=== PATIENT | female | born 1995 | race Caucasian/White ===

== ENCOUNTER 2019-07-11 21:54 | Inpatient (IN) | payer BC, MEDICAID, SELFPAY ==
[2019-07-11 22:07] VITALS: RESP 18; TEMP 36.7
[2019-07-11 22:12] VITALS: BMI 33.9
[2019-07-11] MEDS: miSOPROStol 100 mcg tablet 25 MCG VAGINAL (22:45)
[2019-07-11 22:50] LABS: Basophils % 0.2 %; Eosinophils # 0.1 10^3/uL (0.0-0.8); Eosinophils % 0.4 %; Hematocrit 35.8 % (37.0-47.0); Hemoglobin 11.9 g/dL (11.5-15.3); Lymphocytes # 3.2 10^3/uL (0.8-4.8); Lymphocytes % 27.4 %; Mean Corpuscular HGB Conc 33.2 g/dL (30.0-36.0); Mean Corpuscular Hemoglobin 28.2 pg (28.0-34.0); Mean Corpuscular Volume 84.8 fL (81-99); Mean Platelet Volume 10.6 fL (7.4-10.4); Monocytes # 1.1 10^3/uL (0.2-0.9); Monocytes % 9.1 %; Neutrophils # 7.3 10^3/uL (1.8-7.7); Neutrophils % 62.6 %; Nucleated Red Blood Cells % 0 %; Platelet Count 229 10^3/cmm (130-400); Red Blood Count 4.22 10^6/uL (4.1-5.3); Red Cell Distribution Width 13.1 % (12.1-15.1); White Blood Count 11.7 10^3/uL (4.0-10.0)
[2019-07-12] VITALS (9 sets, daily range): BP systolic 130–155; BP diastolic 80–98; PULSE 75–92; RESP 16–18; TEMP 36.5–36.9; O2SAT 97
[2019-07-12] MEDS: dextrose 5%-lactated ringers 1,000 ML 125 ML IV (03:20)
[2019-07-12] MEDS: fentaNYL 50 mcg/mL INJ 2mL IV ×2 (03:24→04:20)
[2019-07-12] MEDS: lactated ringers 1,000 ML 999 ML IV ×3 (03:57→06:02)
--- NOTE | 2019-07-12 05:08 | P.PN_ITS ---
Pre-Anesthetic Assessment Pre-Anesthetic Assessment: Height/Weight: Height 1.65 m Weight 92.533 kg Temp Resp 98.5 F 18 07/12/19 03:40 07/12/19 03:40 Social: Social History: No alcohol and No tobacco Exam: Pre-Anes Outpt Exam: alert and oriented x 3 Airway: Submandibular: WNL Cervical ROM: WNL MP: 2 History/ROS: No significant history except as noted Pulmonary: Pulmonary: None reported CV/HEM: CV/HEM: None reported : : None reported Hepatic: Hepatic: None reported GI: GI: GERD Metabolic: Metabolic: None reported Musc/skel: Musc/skel: None reported Neuropsych: Neuropsych: None reported Anesthetic Plan: ASA status: II Anesthesia: Regional (specify below) Other: labor epidural placement Risk of > 500 ml blood loss (7ml/kg in children): No Meds/Allergies Current Medications: Current Medications Generic Name Dose Route Start Last Admin Trade Name Freq PRN Reason Stop Dose Admin Fentanyl 25 - 100 mcg 07/12/19 02:39 07/12/19 04:20 Sublimaze IV 75 mcg Q1H PRN Administration SEVERE PAIN Dextrose/Lactated Ringer's 1,000 mls @ 125 m ls/hr 07/11/19 22:15 07/12/19 03:59 Dextrose 5%-Lact ated Ringers IV 0 mls/hr .Q8H DALJIT Infusion Lactated Ringer's 1,000 mls @ 999 m ls/hr 07/11/19 22:03 07/12/19 04:51 Lactated Ringers IV 999 mls/hr .Q1H1M PRN Administration Per L&D Rescitati on Protocol Ropivacaine 200 mg in 100 mls @ 6 mls/hr 07/12/19 03:45 07/12/19 05:05 Naropin Premix EPIDURAL 13 mls/hr .[id number] DALJIT Administration PFSH Anesthesia Female Reproductive History: : 1 Data Anesthesia Labs: Other Labs: Laboratory Results - last 48 hr 07/11/19 22:25 WBC 11.7 H RBC 4.22 Hgb 11.9 Hct 35.8 L MCV 84.8 MCH 28.2 MCHC 33.2 RDW 13.1 Plt Count 229 MPV 10.6 H Neut % (Auto) 62.6 Lymph % (Auto) 27.4 [place] % (Auto) 9.1 Eos % (Auto) 0.4 Baso % (Auto) 0.2 Neut # (Auto) 7.3 Lymph # (Auto) 3.2 [place] # (Auto) 1.1 H Eos # (Auto) 0.1 Baso # (Auto) 0.0 Nucleated RBC % (a uto) 0 Nucleated RBCs # 0.0 Cardiac Studies: No Data to Display Anesthesia Procedures Date of Procedure: 07/12/19 Epidural: Time Out Performed: Yes Consents Signed: Procedure Consent Consent: requested by attending/covering physician, risks and benefits reviewed and patient agrees to proceed Lumbar Level: L3-L4 Epidural position: sitting Epidural procedure: sterile prep of area, 1% lidocaine to numb the area, 18 g needle (L3-L4 interspace), neg for paresthesia, test dose given (3 cc ), 0.2% Ropivacaine bolus ml (8 cc ), placed PCEA (13 mls/hr 5 cc Q 10 min x 3 ), no systemic response, sterile dressing applied and 0.2% Ropiavacaine @ mls/hr (13 ) Additional Comments: 0441: epidural started. QUINN at 8 cm,catheter threaded with ease to 13 cm at skin. VSS no adverse reaction with bolus. 0530: Patient continues to complain of pain with contraction on right side and back, fentanyl 100 mcg given via epidural and 5 cc 1 % lido with epi given. patient tilted to right side, and made aware of option to replace epidural if right sided pain continues. VSS see OBIX.
--- NOTE | 2019-07-12 07:02 | PM.DELIVERY ---
 Delivery Note: Date of delivery: 07/12/19 Pre-delivery diagnoses: This 23-year-old 1 now para 1 female with an EDC of 07/09/2019 began care early in her with this physician. There were no significant complications or problems throughout the . Maternal blood type was O+ with antibody screen negative. Hepatitis B, hepatitis C, RPR and HIV were negative. Rubella was immune and group B strep was negative. She did go postdates and as her was leaving town for work in a few days asked if I would proceed with misoprostol cervical ripening and induction. Benefits and risks were discussed with the patient and spouse prior to her coming in the day prior to delivery for misoprostol cervical ripening. Post-delivery diagnoses: Status post spontaneous vaginal delivery, doing well. Procedure: This patient was admitted to the hospital yesterday evening and monitored closely. Misoprostol 25 mcg was placed intravaginally x1 dose. She began cesar well pretty quickly. She was given epidural anesthesia which provide very little relief for her discomfort. She rapidly went to complete cervical dilatation and this physician was called. Upon arrival, the patient was placed in lithotomy position in stirrups. She pushed very well and was able to deliver by spontaneous vaginal very healthy, viable male infant. Upon delivery of the head the mouth and nose were suctioned. The shoulders were then delivered without problems. There was no nuchal cord and cord had 3 blood vessels. The infant was placed on mother's abdomen where after approximately 1 minute the umbilical cord was clamped and then cut by the 's father. The infant delivered at 06 31. The placenta then delivered spontaneously at 06 48. The infant cried lustily at and had Apgars of 9 and 9 at 1 and 5 minutes respectively. Presently both mother and are doing well. Anesthesia: epidural Delivering Physician: can Estimated blood loss (mL): 154 Findings: There was a small bilateral periurethral laceration which did not require repair. A&P Assessment and plan (1) Spontaneous vaginal delivery: Patient tolerated the procedure well and presently has no heavy bleeding. She will be followed for routine care. We will adjust orders as necessary. Status: Acute Code(s): O80 - Encounter for full-term uncomplicated delivery Coding Level of Care Code Acute Environmental Services Supervisor for Chg Fwd Diagnoses Spontaneous vaginal delivery O80
[2019-07-12] MEDS: oxytocin 30 UNIT/500 ML BAG 600 UNIT IV (07:23)
[2019-07-12] MEDS: lanolin oint 7 gm 1 APPLIC TOPICAL (10:04)
[2019-07-12] MEDS: benzocaine-menthol 78 gm Canister 1 SPRAY TOPICAL (10:04)
[2019-07-12] MEDS: docusate sodium 100 mg Capsule PO ×2 (10:05→18:35)
[2019-07-12] MEDS: prenatal vitamin Capsule 1 CAP PO (10:05)
[2019-07-12 20:26] LABS: Hematocrit 34.2 % (37.0-47.0); Hemoglobin 11.3 g/dL (11.5-15.3); Mean Corpuscular Hemoglobin 28.5 pg (28.0-34.0); Mean Corpuscular Volume 86.1 fL (81-99); Mean Platelet Volume 10.8 fL (7.4-10.4); Platelet Count 214 10^3/cmm (130-400); Red Blood Count 3.97 10^6/uL (4.1-5.3); Red Cell Distribution Width 13.2 % (12.1-15.1); White Blood Count 14.5 10^3/uL (4.0-10.0)
[2019-07-13 00:25] VITALS: BP 137/92; PULSE 88; RESP 16; TEMP 36.6; O2SAT 98
[2019-07-13 05:00] VITALS: BP 123/83; PULSE 76; RESP 16; TEMP 36.7; O2SAT 98
[2019-07-13] MEDS: prenatal vitamin Capsule 1 CAP PO (09:25)
[2019-07-13] MEDS: docusate sodium 100 mg Capsule PO (09:25)
--- NOTE | 2019-07-13 10:07 | PM.OBGYDC ---
Discharge Providers GAS OR PETROLEUM OPERATOR Date of Admission: 07/11/19 21:54 Date of Discharge: 07/15/19 Attending Provider at Admission: Amol Samano MD Attending Provider at Discharge: Amol Samano MD Primary Care Provider: Amol Samano MD Diagnoses at Discharge Discharge Diagnosis (1) Spontaneous vaginal delivery: Status: Acute Problem details: Patient has done well . She has had mild lochia and no significant cramps and clots. The is breast-feeding fair. Reason for Visit Reason for Visit: Reason For Visit: induction Hospital Course Hospital Course: Patient has done well since delivery. She is ambulating well and tolerating a regular diet. The is breast-feeding fair and mom is continue to work with this. She is felt to be stable to be discharged home. Information Peripartum Data: Delivery Method: Vaginal Physical Exam Narrative: EXAM NARRATIVE: After delivery, the patient has done extremely well Const: COMMON NORMALS: no apparent distress and no limitations EXAM LIMITATIONS: no altered mental status GENERAL APPEARANCE: cooperative, comfortable and well kempt; not in distress ORIENTATION/CONSCIOUSNESS: Yes awake, Yes oriented to person, Yes oriented to place and Yes oriented to time Neck/C-Spine: COMMON NORMALS: full ROM Chest: COMMONS NORMALS: inspection of chest normal CHEST: Yes symmetrical chest wall rise Resp: COMMON NORMALS: normal respiratory effort, no use of accessory muscles and clear to auscultation bilaterally AUSCULTATION: clear to auscultation bilaterally Cardio: COMMON NORMALS: regular rhythm RHYTHM: regular rhythm GI: COMMON NORMALS: normal to inspection, nondistended, normoactive bowel sounds and soft to palpation (fundus is firm.) PALPATION: Yes soft (fundus is firm.) Neuro: SENSORIUM/ORIENTATION: Yes oriented to person, Yes oriented to place and Yes oriented to time Psych: COMMON NORMALS: mental status grossly normal and cooperative APPEARANCE: Yes well kempt Discharge Data Data Completed and Pending: Labs from last 24 hours 07/12/19 19:52 WBC 14.5 H RBC 3.97 L Hgb 11.3 L Hct 34.2 L MCV 86.1 MCH 28.5 MCHC 33.0 RDW 13.2 Plt Count 214 MPV 10.8 H Vitals: Last Vital Signs Temp 98.0 F 07/13/19 05:00 Pulse 76 01/04/20 05:00 Resp 16 07/13/19 05:00 BP 123/83 07/13/19 05:00 Pulse Ox 98 07/13/19 05:00 Discharge Plan Discharge Patient Disposition: Home, Self-Care Condition: Stable Prescriptions: New docusate sodium 100 mg Capsule 100 mg PO BID Qty: 0 RF: 0 ibuprofen 800 mg Tablet 800 mg PO TID MDD 3 tablets PRN (Reason: pain) Qty: 90 RF: 1 Lanolin (HPA) 100 % Cream 1 % topical .tid prn MDD 4 PRN (Reason: Dryness) 21 Days Qty: 40 RF: 1 Continued Vitamin Plus Low Iron 27 mg iron- 1 mg tablet 1 tab PO DAILY RF: 0 Discharge Orders: Discharge Order (Routine); Ordered 07/13/19 Ordered By: Amol Samano Discharge Diet: Usual diet Discharge Activity: Limit activity as instructed Patient Instructions: Iron Supplements (By mouth), Vitamins (By mouth), Cord Care (GEN), Your Drury's Appearance (DC), Breast Care for the Breast Feeding Mother (DC), Vaginal Delivery (DC), Jaundice (DC), OB Discharge Report, OB Food/Drug Interaction Guide, OB Home Care, OB Proud Parent Packet Activity Restrictions/Additional Instructions: Follow-up with Dr. Samano in 6 weeks and as needed. Discharge Date/Time: 07/13/19 13:00 Discharge Attestations GAS OR PETROLEUM OPERATOR Time Spent in Discharge Care*: less than 30 min Coding Level of Care Code Acute Dairy Inspector for Chg Fwd Exam Problem Focused Diagnoses Spontaneous vaginal delivery O80
[2019-07-13 10:50] VITALS: BP 125/73; PULSE 65; RESP 18; TEMP 36.8; O2SAT 98
[2019-07-13 12:50] VITALS: BP 131/85; PULSE 108; RESP 18; TEMP 36.9; O2SAT 99
== END 2019-07-13 13:00 | disposition home or self-care (01) | DRG 807 ==
PROVIDERS: Admitting Provider Family Medicine; Family Provider Family Medicine; PCP Family Medicine; Visit Provider Family Medicine
DX: O48.0 Post-term pregnancy (principal); Z37.0 Single live birth; Z3A.40 40 weeks gestation of pregnancy
CPT/HCPCS: 36415; 59409; 85025; 85027; 98960; 99221; J2001; J2795; J3010

== ENCOUNTER 2019-10-01 19:55 | Emergency (ER) | payer BC, MEDICAID, SELFPAY ==
[2019-10-01 20:29] VITALS: BP 137/83; PULSE 112; RESP 18; TEMP 38; O2SAT 99; BMI 28.3
--- NOTE | 2019-10-01 20:54 | ED_ITS ---
Entered by Sera King, acting as scribe for Vivienne Mast MD Oct 01, 2019 19:55 HPI - Fever General: Chief Complaint: Fever Stated Complaint: Fever, chills, sore throat... Time Seen by Provider: 10/01/19 20:51 Source: patient Mode of arrival: ambulatory Limitations: no limitations History of Present Illness: HPI Narrative: 24 yo f came to the er for a fever, sore throat and chills. Onset was last week but was gotten worse over the last couples of days. Pt states that she has been having chest congestion, headache/migraine, cough and fever. Pt said that her was around someone that had coronavirus. MD elicited complaint: fever Onset (ago): week(s) (1 week ago) Context: sick contacts Exacerbating factors: nothing Relieving factors: nothing Associated symptoms: Reports chills, cough, headache(s), nasal congestion and sore throat; Deny abdominal pain, chest pain or vomiting Treatments prior to arrival fever: none Review of Systems General: Reports: other (negeative unless marked) Const: Reports: fever, chills and body aches Eyes: Denies: change in vision ENMT: Reports: throat pain and nasal congestion Card: Denies: chest pain Resp: Reports: productive cough; Denies: shortness of breath GI: Denies: abdominal pain or vomiting Musc: Denies: neck pain or back pain Skin/Breast: Denies: rash Neuro: Reports: headache PFSH ED PFSH: Social History Smoking and tobacco status: never smoked Physical Exam Const: COMMON NORMALS: no apparent distress, oriented x3 and healthy appearing HENMT: COMMON NORMALS: normocephalic and head/scalp atraumatic HEAD & SCALP: normocephalic and atraumatic Eye: COMMON NORMALS: PERRL and EOMs intact bilaterally PUPIL: Yes PERRL Neck/C-Spine: COMMON NORMALS: full ROM and supple Chest: COMMONS NORMALS: inspection of chest normal and palpation of chest normal Resp: COMMON NORMALS: normal respiratory effort, no retractions, no use of accessory muscles and clear to auscultation bilaterally AUSCULTATION: clear to auscultation bilaterally Cardio: COMMON NORMALS: regular rate, regular rhythm and no murmurs RATE: regular rate RHYTHM: regular rhythm GI: COMMON NORMALS: normal to inspection, nondistended, normoactive bowel sounds, soft to palpation, non-tender and no masses PALPATION: Yes soft Extremity: COMMON NORMALS: normal to inspection and full ROM Neuro: COMMON NORMALS: oriented x3, moves all extremities and no focal motor deficits Psych: COMMON NORMALS: mental status grossly normal, thought process normal and cooperative THOUGHT PROCESS: normal thought process Skin: COMMON NORMALS: no rashes or lesions noted and no wounds GENERAL SKIN EXAM: no rashes or lesions noted Course Vital Signs: Vital signs: Vital Signs Temperature 100.4 F H 10/01/19 20:29 Pulse Rate 112 H 10/01/19 20:29 Respiratory Rate 18 10/01/19 20:29 Blood Pressure 137/83 10/01/19 20:29 Pulse Oximetry 99 10/01/19 20:29 MDM - Fever MDM Narrative: Medical decision making narrative: Patient presents here with fever along with cough. Patient is concerned as her had adrian exposure but has no symptoms. We will test her for [place] at 19 and did inform her she needs to self quarantine over the next 2 weeks. Patient's flu is negative and x-ray is negative. She is well-appearing here and has no distress. Patient is stable for discharge and return if worsening. Lab Data: Labs: Lab Results 10/01/19 10/01/19 Range/Units 20:33 21:00 Influenza Type A A g Negative (Negative) POC Influenza B Ag Negative (Negative) Group A Strep Rapi d Negative (Negative) Imaging Data^: CXR: Attestation: I personally reviewed and interpreted this imaging study as follows: My impression: no acute abnormality Discharge Plan Discharge Patient Disposition: Home, Self-Care Clinical Impression: Acute upper respiratory infection Condition: Stable Prescriptions: No Action Tylenol 325 mg Tablet 325 mg PO QID PRN (Reason: Fever) RF: 0 ibuprofen 800 mg Tablet 800 mg PO TID MDD 3 tablets PRN (Reason: pain) Qty: 90 RF: 1 Discharge Orders: Discharge Order (Routine); Ordered 10/01/19 Ordered By: Vivienne Mast Referrals: Amol Samano MD [Primary Care Provider] - 4-7 days Discharge Diet: Advance as tolerated Discharge Activity: Resume usual activity Patient Instructions: Upper Respiratory Infection (ED) Stand Alone Forms: Work/School Release Coding Level of Care Code ED Cutter Grinder Operator for Chg Fwd Exam Comprehensive The documentation recorded by the Fernando leahy Stephanie Lyn, accurately reflects the service I personally performed and the decisions made by me, Vivienne Mast MD Oct 01, 2019 19:55
--- NOTE | 2019-10-01 21:05 | PC.NURSE ---
Introduced self to patient and initiated vital signs. Patient presents A&O x 4. NAD, ABCs intact, MAEW and agreeable to treatment. Respirations are even and unlabored. Pt states that the chief complaint for the ER visit today is due to sore throat and flu-like smyptoms. Pt states that her 's hospital manager has tested positive for COVID-19 and has had contact with that person. Pt denies any vision disturbances or lightheadedness. Bed left in lowest position in semi-fowlers with side rails up.Reassured patient of needs and will continue to monitor.
[2019-10-01 21:17] LABS: Influenza A by IFA Negative (Negative); Influenza B by IFA Negative (Negative)
[2019-10-01] MEDS: acetaminophen 325 mg Tablet 650 MG PO (21:45)
[2019-10-01 21:47] LABS: Rapid Strep A Test Negative (Negative)
--- NOTE | 2019-10-01 21:48 | XR_ITS ---
WS: [id number] Portable AP upright chest, 10/01/2019 Clinical Data: cough Comparison: PA and lateral chest, 09/11/2015. Findings: No nodules, masses or effusions are seen. The heart is normal. The pulmonary vascularity is not increased. No pneumonia or pneumothorax is seen. XR/XR chest 1V portable [id number] Impression: Negative chest.
[2019-10-01 22:25] VITALS: BP 124/88; PULSE 76; RESP 16; TEMP 36.9; O2SAT 97
[2019-10-05 12:44] LABS: Coronavirus Overall Results NOT DETECTED
--- NOTE | 2019-10-05 17:08 | PC.NURSE ---
pt contacted and informed of negative COVID 19 results
== END 2019-10-01 23:12 | disposition home or self-care (01) ==
PROVIDERS: Emergency Medicine; Emergency Provider Emergency Medicine; Family Provider Family Medicine; PCP Family Medicine
DX: J06.9 Acute upper respiratory infection, unspecified (principal)
CPT/HCPCS: 12345; 71045; 87081; 87635; 87804; 87880; 99282; 99283

== ENCOUNTER 2021-03-03 18:20 | Outpatient (CLI) | payer MEDICAID, SELFPAY ==
[2021-03-03] VITALS (12 sets, daily range): BP systolic 117–139; BP diastolic 71–86; PULSE 77–95; RESP 16; TEMP 36.1; BMI 32.8
[2021-03-03 21:20] LABS: Bacteria Urine TRACE /hpf; Bilirubin Urine Neg (Negative); Blood Urine Neg (Negative); Glucose Urine UA Norm (Normal); Ketones Urine Negative (Negative); Leukocyte Esterase Urine Negative (Negative); Nitrate Urine Negative (Negative); Protein Urine Neg (Negative); RBC Urine 0-4 /hpf (0-2); Squamous Epithelial Cell Urine 0-4 /hpf (0-5); Urine Appearance Clear (CLEAR); Urine Color Yellow (Yellow); Urobilinogen Urine Norm (Negative); WBC Urine 0-4 /hpf (0-5); pH Urine 7 (5-7)
== END 2021-03-03 22:30 | disposition home or self-care (01) ==
LOC: OPOB 18:24 → OBGYN 18:25
PROVIDERS: PCP Family Medicine; Visit Provider Family Medicine
DX: O36.8190 Decreased fetal movements, unspecified trimester, not applicable or unspecified (principal); Z3A.00 Weeks of gestation of pregnancy not specified; R10.9 Unspecified abdominal pain
CPT/HCPCS: 59025; 81001; 99211

== ENCOUNTER 2021-04-23 01:49 | Inpatient (IN) | payer MEDICAID, SELFPAY ==
[2021-04-23] VITALS (18 sets, daily range): BP systolic 121–156; BP diastolic 76–102; PULSE 63–93; TEMP 37.1; BMI 34.1
--- NOTE | 2021-04-23 02:10 | PM.OPHPUD ---
Labor & Delivery H&P Update Date of Procedure: April 23, 2021 Date H&P Performed: 04/20/21 H&P update information: I have reviewed H&P completed within last 30 days, I have examined patient prior to procedure and Changes to prior documentation as noted here (Patient began cesar around 11:30 PM.Upon arrival, she was approximately 7 cm dilated.) Admission Diagnosis: Preop diagnosis: in spontaneous labor. Primary indication for procedure: See above. Planned procedure: Plan probable spontaneous vaginal delivery.
[2021-04-23 02:20] LABS: Basophils % 0.3 %; Eosinophils # 0.1 10^3/uL (0.0-0.8); Eosinophils % 0.6 %; Hematocrit 36.1 % (37.0-47.0); Hemoglobin 11.7 g/dL (11.5-15.3); Lymphocytes # 3.8 10^3/uL (0.8-4.8); Lymphocytes % 31.9 %; Mean Corpuscular HGB Conc 32.4 g/dL (30.0-36.0); Mean Corpuscular Volume 83.2 fl (81-99); Mean Platelet Volume 10.9 fL (7.4-10.4); Monocytes # 1.2 10^3/uL (0.2-0.9); Monocytes % 10.1 %; Neutrophils # 6.75 10^3/uL (1.8-7.7); Neutrophils % 56.7 %; Nucleated Red Blood Cells % 0 %; Platelet Count 238 10^3/cmm (130-400); Red Blood Count 4.34 10^6/uL (4.1-5.3); Red Cell Distribution Width 13.4 % (12.1-15.1); White Blood Count 11.9 10^3/uL (4.0-10.0)
[2021-04-23] MEDS: oxytocin 30 UNIT/500 ML BAG 600 UNIT IV (02:37)
--- NOTE | 2021-04-23 02:49 | P.PCNOB_ITS ---
Delivery Note: Date of delivery: April 23, 2021 This 25-year-old 2 now para 2 female at 39 weeks and 3 days had onset of labor at approximately 2330 yesterday evening. She arrived at [facility] labor and delivery in active labor and 7 cm dilated. She quickly dilated to complete cervical dilatation and began pushing at around oh 0229 and delivered by spontaneous vaginal livery a healthy, viable male infant at 02 33. Upon delivery of the head the mouth and nose were suctioned at the perineum followed by delivery of the left shoulder anteriorly in the right shoulder posteriorly. The was then suctioned again with then laying the infant on mother's abdomen. After approximately 1 minute the umbilical cord was clamped and then cut by the 's father. The umbilical cord had 3 blood vessels and there was no nuchal cord. The infant initially sounded little coarse and had some retractions. However he had great tone with Apgars of 8 and 9 at 1 and 5 minutes respectively. The continues to have some retractions and grunting and is requiring CPAP with a 30% oxygen. There was no vaginal or perineal lacerations and no repair needed. No anesthesia was used for the labor and delivery process. The placenta delivered spontaneously at 02 37 and appeared to be intact. Estimated blood loss approximate 114 mL. Pre-Delivery Course: This is patient was followed by this physician throughout her course without problems or concerns. Her blood type was O+ with antibody screen negative. Rubella was immune, group B strep was negative and Covid was negative. She had spontaneous onset of labor at home late last night. Delivery: Spontaneous vaginal delivery. Post-Delivery Status: Patient is doing well with no significant bleeding or cramping. She will be followed for routine postdelivery care. A&P Assessment and plan (1) Spontaneous vaginal delivery: Patient is doing well at this time and will be followed for routine postdelivery care. Mom plans on breast-feeding. Status: Acute Coding Level of Care Code Acute Manager Site for Chg Fwd Diagnoses Spontaneous vaginal delivery O80
[2021-04-23] MEDS: lactated ringers 1,000 ML 999 ML IV (02:50)
[2021-04-23] MEDS: lanolin oint 7 gm 1 APPLIC TOPICAL (03:54)
[2021-04-23] MEDS: benzocaine-menthol 78 gm Canister 1 SPRAY TOPICAL (03:54)
[2021-04-23] MEDS: HYDROcodone-acetaminophen 5-325 mg Tablet PO (03:58)
[2021-04-23] MEDS: prenatal vitamin Capsule 1 CAP PO (09:50)
[2021-04-23] MEDS: ibuprofen 800 mg tablet PO ×3 (09:50→21:27)
[2021-04-23] MEDS: docusate sodium 100 mg Capsule PO ×2 (09:50→18:14)
[2021-04-23 15:50] LABS: Hematocrit 30.2 % (37.0-47.0); Hemoglobin 9.9 g/dL (11.5-15.3); Mean Corpuscular HGB Conc 32.8 g/dL (30.0-36.0); Mean Corpuscular Hemoglobin 27.6 pg (28.0-34.0); Mean Corpuscular Volume 84.1 fl (81-99); Mean Platelet Volume 11.2 fL (7.4-10.4); Platelet Count 189 10^3/cmm (130-400); Red Blood Count 3.59 10^6/uL (4.1-5.3); Red Cell Distribution Width 13.6 % (12.1-15.1); White Blood Count 12.7 10^3/uL (4.0-10.0)
[2021-04-24 04:30] VITALS: BP 119/70; PULSE 75
--- NOTE | 2021-04-24 10:03 | P.DS_ITS ---
Discharge Providers RADIAL DRILL OPERATOR Date of Admission: 04/23/21 01:49 Date of Discharge: 04/24/21 Attending Provider at Admission: Amol Samano MD Attending Provider at Discharge: Amol Samano MD Primary Care Provider: Amol Samano MD Diagnoses at Discharge Discharge Diagnosis (1) Spontaneous vaginal delivery: Status: Acute Reason for Visit Reason for Visit: contractions Hospital Course Hospital Course Patient delivered by spontaneous vaginal delivery very early yesterday morning. She has done well and is breast-feeding well. She has had just mild lochia with no significant clots or other problems. She is ambulating well and tolerating regular diet and is felt to be stable for discharge. Information Peripartum Data: Delivery Method: Vaginal Physical Exam Const: COMMON NORMALS: no acute distress and healthy appearing HENMT: COMMON NORMALS: moist oral mucous membranes Resp: COMMON NORMALS: normal respiratory effort, No retractions, No use of accessory muscles and clear to auscultation bilaterally AUSCULTATION: clear to auscultation bilaterally Cardio: COMMON NORMALS: regular rate, regular rhythm and No murmurs present (Cardio) RATE: regular rate RHYTHM: regular rhythm GI: COMMON NORMALS: Normal to inspection, nondistended, normoactive bowel sounds present, Soft to palpation (Fundus is firm and well below the umbilicus.) and non-tender PALPATION: Yes Soft to palpation (Fundus is firm and well below the umbilicus.) : COMMON NORMALS: Yes no CVA tenderness BLADDER/KIDNEY EXAM: Yes no CVA tenderness Back/Pelvis: COMMON NORMALS: no CVA tenderness and no thoracic nor lumbar tenderness Extremity: COMMON NORMALS: normal to inspection, full ROM, no calf tenderness and no pedal edema Neuro: COMMON NORMALS: moves all extremities, no focal motor deficits and no sensory deficits noted Psych: COMMON NORMALS: mental status grossly normal, Normal thought process present, cooperative and activity/motor behavior normal THOUGHT PROCESS: Normal thought process present Skin: COMMON NORMALS: no rashes or lesions noted GENERAL SKIN EXAM: no rashes or lesions noted Discharge Data Data Completed and Pending: Labs from last 24 hours 04/23/21 15:25 WBC 12.7 H RBC 3.59 L Hgb 9.9 L Hct 30.2 L MCV 84.1 MCH 27.6 L MCHC 32.8 RDW 13.6 Plt Count 189 MPV 11.2 H Vitals: Last Vital Signs Temp 98.8 F 04/23/21 23:03 Pulse 75 04/24/21 04:30 BP 119/70 04/24/21 04:30 Discharge Plan Discharge Patient Disposition: Home Condition: Stable Prescriptions: New docusate sodium 100 mg Capsule 100 mg PO BID Qty: 60 RF: 1 Lanolin (HPA) 100 % Cream 1 applic topical PRN PRN (Reason: Dryness) Qty: 90 RF: 1 ibuprofen 800 mg Tablet 800 mg PO TID Qty: 90 RF: 1 Continued 1 mg Tablet 1 tab PO DAILY RF: 0 Referrals: Amol Samano MD [Primary Care Provider] - 6 Weeks Discharge Diet: Usual diet Discharge Activity: Resume usual activity Patient Instructions: Depression (DC), Expression, Collection and Storage of Breast Milk (DC), Preeclampsia and Eclampsia After Delivery (GEN), OB Discharge Report, OB Food/Drug Interaction Guide, Opioid Safety, OB Home Care, OB Vaginal Deliveries - [facility], Abnormal Bleeding Discharge Attestations RADIAL DRILL OPERATOR Time Spent in Discharge Care*: less than 30 min Specific Discharge Activities: Specific discharge activities: educating patient, documenting/other paperwork and evaluating patient/reviewing data Coding Level of Care Code Acute Contact Lens Assistant for Chg Fwd Diagnoses Spontaneous vaginal delivery O80
[2021-04-24] MEDS: prenatal vitamin Capsule 1 CAP PO (12:06)
[2021-04-24] MEDS: ibuprofen 800 mg tablet PO (12:06)
[2021-04-24] MEDS: docusate sodium 100 mg Capsule PO (12:06)
[2021-04-24 12:10] VITALS: BP 141/94; PULSE 75; RESP 18; TEMP 36.7
== END 2021-04-24 12:50 | disposition home or self-care (01) | DRG 807 ==
LOC: OPOB 01:51 → OBGYN 01:51
PROVIDERS: Admitting Provider Family Medicine; PCP Family Medicine; Visit Provider Family Medicine
DX: O80 Encounter for full-term uncomplicated delivery (principal); Z37.0 Single live birth; Z3A.39 39 weeks gestation of pregnancy
CPT/HCPCS: 36415; 59409; 85025; 85027; 98960; 99211